=== PATIENT | female | born 2005 | race Caucasian/White ===

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

== ENCOUNTER 2024-02-18 16:02 | Outpatient (REF) | payer MEDICAID, SELFPAY | END 2024-02-18 16:03 | disposition home or self-care (01) | LOC: LBN 16:02 | PROVIDERS: Visit Provider Obstetrics & Gynecology | DX: N89.8 Other specified noninflammatory disorders of vagina (principal) | CPT/HCPCS: 87480; 87510; 87660 ==

== ENCOUNTER 2024-06-26 17:18 | Emergency (ER) | payer MEDICAID, SELFPAY ==
[2024-06-26 17:22] VITALS: BP 123/85; PULSE 103; RESP 14; TEMP 37.5; O2SAT 98
--- NOTE | 2024-06-26 17:22 | W.ED.GENAD ---
Discharge Plan Disposition Patient Disposition: Home Discharge Details Clinical Impression: Cat scratch of left wrist Primary Care Provider: None,None ED Provider: Be Yi Home Meds and New Rx's Prescriptions: New amoxicillin-pot clavulanate 875-125 mg tablet 1 tab PO BID 5 Days Qty: 10 0RF Continued insulin aspart U-100 [Novolog U-100 Insulin aspart] 100 unit/mL solution 1 sliding sc SC USEASDIRECTD Patient Comments: As directed by [facility] for Insulin Pump Discharge Instructions Instructions: Taking care of cuts, scrapes, and puncture wounds Additional Instructions: You were seen in the emergency department following your encounter with your cat. Your tetanus immunization was updated. You are receiving antibiotics in the next 5 days which you should take as directed. Please return to the emergency department as we discussed if you develop fevers streaking signs of infection or any foul-smelling drainage from your wound. Otherwise please follow-up with your primary care provider next week. Discharge Data Discharge Date/Time-TO BE ENTERED AT DEPARTURE: 06/26/24 18:15 HPI General Date/Time Provider Initiated Documentation: 06/26/24 17:22. HPI Narrative: MDM This is an overall very well-appearing normothermic but mildly tachycardic [id number]-[id number] 19-year-old female with multiple cat bites to her left wrist and hand for which she received x-rays to assess for retained teeth and antibiotics with amoxicillin clavulanic acid following irrigation with tetanus vaccination. No pain or proportion to suggest necrotizing soft tissue infection. Patient is slightly limited range of motion of left wrist likely secondary to pain. She is intact sensation motor function in her hand so not concern for ligamentous injury. No significant erythema to suggest cellulitis. No fluctuance to suggest abscess. No significant wrist erythema to suggest septic joint. 6:11 PM X-ray negative for any acute osseous abnormalities. X-ray did show soft tissue gas adjacent to the dorsal aspect of the patient's left wrist where she was bit. Tachycardia resolved without intervention in the ED. Patient and her wounds irrigated. She received her first dose of amoxicillin clavulanic acid in ED. Patient, her mom and I discussed twice daily warm water soaks. We discussed that she should return to the ED for worsening pain swelling streaking signs of infection or any foul-smelling drainage. She understood her return indications and she was discharged with empiric trial of expectant outpatient management. HPI This is a tqqvr-uwjd-yusutqby type I diabetic female arrived emergency department with her mother via private vehicle in the setting of cat bites to her right wrist and hand. Patient reports that just prior to arrival she began 2 cats from a fight. She was scratched on her left wrist and left hand. She feels that she was also bit. She denies loss of consciousness. She is having pain in her left wrist. She denies any other injuries. She was in her usual state of health earlier today. She received her immunizations during childhood. She denied dysuria frequency chest pain Exam General: Well-appearing in no acute distress speaking in complete sentences. Head: Normocephalic, atraumatic. Eye: Extraocular eye movements intact. No conjunctival injection. No scleral icterus. Ear, nose, mouth, throat: Grossly normal inspection. Normal voice, handling secretions normally. Neck: Trachea midline. Cardiovascular: Well-perfused distal extremities. Respiratory: Nonlabored respiration. Gastrointestinal: Nondistended abdomen. Musculoskeletal: On the dorsal surface of the left distal forearm there are 2 superficial bites from a cat. On the volar surface of the left proximal hand there is a single puncture wound traumatic cat scratch. Sensation motor function intact in the left hand across the radial, median, and ulnar nerve distributions. 2+ left radial pulse. Cap refill less than 2 seconds in left fingertips. Lacerations are superficial and hemostatic. Skin: Normal for age and race, grossly normal temperature and turgor. No acute rash. Neurologic: Alert and appropriate, no apparent acute deficits. Psychiatric: Mood and manner are appropriate. Grooming and personal hygiene are appropriate. Related Data Home Medications ?Medication ?Instructions ?Recorded ?Confirmed insulin aspart U-100 100 unit/mL 1 sliding sc subcut USEASDIRECTD 04/19/19 06/26/24 subcutaneous solution (Novolog U-100 Insulin aspart) amoxicillin 875 mg-potassium 1 tab PO BID 5 days #10 tabs 06/26/24 clavulanate 125 mg tablet Previous Rx's ?Medication ?Instructions ?Recorded amoxicillin 875 mg-potassium 1 tab PO BID 5 days #10 tabs 06/26/24 clavulanate 125 mg tablet Allergies Allergy/AdvReac Type Severity Reaction Status Date / Time No Known Allergies Allergy Verified 06/26/24 17:25 General JAVIER: 4 Medical Decision Making Quality:SDOH Health Related Social Needs: No Data to Display PFSH All Active Problems (Updated 06/26/24 @ 17:40 by Be Yi MD) Cat scratch of left wrist (Acute) Right wrist sprain (Acute 11/10/23) Closed fracture of left distal radius (Acute 11/10/23) Diarrhea (Acute) Type I diabetes mellitus (Chronic) with poor control Fatigue (Acute) Depression (Chronic) Menorrhagia with irregular cycle (Acute 02/12/18) Medical History Diabetic cataract Eval at [facility] 12/14 Burn of left ankle Fracture of right wrist Surgical History No pertinent past surgical history Family History Mother Hearing loss Mental disorder depression and anxiety Wears glasses Thyroid disease Brother No problems noted. Father Mental disorder depression Wears glasses Asthma Social History Smoking/Tobacco Use Status: Never Second Hand Exposure: No Smoking risk assessment performed?: Yes Alcohol Intake: never Drug use: Never Substance use type: does not use Adopted: No Foster care: No Housing: house Education Level: high school Details: [employer], 11th grade Pets and animals: No Current gender identity: female Seatbelt use: always Helmet use: Yes Fire extinguisher in home: Yes Carbon monox detector in home: Yes Firearms in home: No Do you feel safe at home: Yes Do you feel safe in your relationship?: Yes Female Reproductive History Menstrual Duration of menses: 6-7 days History History 0 Para Hx # Term Pregnancies Multiple births Hx # Pregnancies Ectopic pregnancies AB induced Hx Number of Living Children AB spontaneous
--- NOTE | 2024-06-26 17:30 | DI.RAD_ITS ---
Exam(s) XR WRIST LT COMPLETE EXAM: XR WRIST LT COMPLETE CLINICAL HISTORY: Cat bites. TECHNIQUE: 2D digital imaging was performed of the left wrist. Three images were obtained. PA, obl ique and lateral views were obtained. COMPARISON: CR XR WRIST LT LIMITED from 12/29/2023 FINDINGS: BONES: No acute fracture is present. No bony destructive lesion is seen. JOINTS: The carpal bones are normally aligned. SOFT TISSUE: There is soft tissue gas seen in the wrist posteriorly. No foreign body is identified. IMPRESSION: Soft tissue gas seen in the wrist posteriorly. No radiopaque foreign body. DATA REPOSITORY: RADIATION DOSE DELIVERED:
[2024-06-26] MEDS: Acetaminophen 500 MG TAB 1000 MG PO (17:56)
[2024-06-26] MEDS: Amoxicillin 875/Clav. 125 TAB PO (17:56)
[2024-06-26] MEDS: Diph,Pertuss(Acell),Tet Vac/Pf 0.5 ML SYR IM (17:57)
--- NOTE | 2024-06-26 18:04 | DI.VRAD_ITS ---
PROCEDURE INFORMATION: Exam: XR Left Wrist Exam date and time: 06/26/2024 5:47 PM Age: 19 years old Clinical indication: Injury or trauma; Other: Cat bites; Puncture; Wrist; Left TECHNIQUE: Imaging protocol: Radiologic exam of the left wrist. Views: 3 or more views. COMPARISON: CR XR WRIST LT LIMITED 12/29/2023 2:30 PM FINDINGS: Bones/joints: Three views of the left wrist reveal no acute fracture or dislocation. Soft tissues: There is gas in the soft tissues of the posterior wrist. No radiopaque foreign body is seen. IMPRESSION: No acute fracture or dislocation seen at the left wrist. No radiopaque foreign body. Soft tissue gas seen posteriorly in keeping with the provided history of animal bites. Dictated and Authenticated by: Jonathan Gómez MD. Ordering:MELIDA Lr MD
[2024-06-26 18:09] VITALS: PULSE 94; RESP 14
== END 2024-06-26 18:15 | disposition home or self-care (01) ==
LOC: ER 18:04
PROVIDERS: Emergency Provider Emergency Medicine
DX: W55.01XA Bitten by cat, initial encounter; E10.9 Type 1 diabetes mellitus without complications; S51.852A Open bite of left forearm, initial encounter; S61.432A Puncture wound without foreign body of left hand, initial encounter; W55.03XA Scratched by cat, initial encounter; Z23 Encounter for immunization
CPT/HCPCS: 90471; 90715; 99284; 73110; 99283

== ENCOUNTER 2024-11-28 19:26 | Emergency (ER) | payer MEDICAID, SELFPAY ==
[2024-11-28 19:29] VITALS: BP 127/85; PULSE 105; RESP 16; TEMP 36.8; O2SAT 99
--- NOTE | 2024-11-28 19:44 | ED.GENADUL_ITS ---
Discharge Plan Disposition Patient Disposition: Home Discharge Details Clinical Impression: Sinusitis Primary Care Provider: None,None ED Provider: Zaynab Spann Home Meds and New Rx's Prescriptions: New amoxicillin-pot clavulanate 875-125 mg tablet 1 tab PO BID Qty: 10 0RF No Action insulin aspart U-100 [Novolog U-100 Insulin aspart] 100 unit/mL solution 1 sliding sc SC USEASDIRECTD Patient Comments: As directed by [facility] for Insulin Pump Discharge Instructions Instructions: Sinusitis in adults Additional Instructions: Referral has been made for you to establish care with a primary care provider. Please take the Augmentin for the full course as prescribed. Please take with a probiotic such as Activia yogurt to prevent antibiotic associated diarrhea. Use Tylenol or ibuprofen as needed for discomfort. Please use saline nasal spray and steamy showers to help moisturize your sinuses. Return to emergency care if you develop new fever/chills, severe headaches, vision changes, swelling of your face or neck, or if you are very worried and need to be rechecked again immediately Referrals: Care Management [Provider Group] HPI General Date/Time Provider Initiated Documentation: 11/28/24 19:35 . HPI Narrative: Milena is a 19 year old female who presents for evaluation of sinusitis. She reports she has recently recovered from a cold, including cough and postnasal drip for the past week; denies associated sore throat, fevers, or chills. She has had unilateral epistaxis (R nare) and thick nasal discharge for 6 days, with pain radiating to her ear and jaw, mild otalgia, and a sensation of blocked ears causing temporary hearing loss. No oral pain, dental issues, vision changes, or unusual headaches. She does not use a humidifier at home. She has no primary care physician and has not used antibiotics for over 6 months. 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 Her blood glucose levels have been slightly elevated recently. Related Data Home Medications ?Medication ?Instructions ?Recorded ?Confirmed insulin aspart U-100 100 unit/mL 1 sliding sc subcut USEASDIRECTD 04/19/19 11/28/24 subcutaneous solution (Novolog U-100 Insulin aspart) amoxicillin 875 mg-potassium 1 tab PO BID #10 tabs 11/28/24 clavulanate 125 mg tablet Previous Rx's ?Medication ?Instructions ?Recorded amoxicillin 875 mg-potassium 1 tab PO BID #10 tabs 11/28/24 clavulanate 125 mg tablet Allergies Allergy/AdvReac Type Severity Reaction Status Date / Time No Known Allergies Allergy Verified 11/28/24 19:33 General Stated Complaint: GenMedical JAVIER: 4 Exam Narrative Exam Narrative: General Appearance: Normal. Vital signs: Within normal limits. HEENT: Unable to visualize TMs bilaterally due to cerumen impaction.. No epistaxis or nasal drainage noted. Tenderness palpation of right maxillary sinus. No trismus. Note dental damage or dental tenderness with palpation. Lymphatic: No cervical or submandibular lymphadenopathy. Neck: Full painless range of motion of neck. Skin: Warm and dry, no rash. Psychiatric: Normal. Course Vital Signs Vital signs: Vital Signs Temperature 36.8 C 11/28/24 19:29 Pulse 105 H 11/28/24 19:29 Respiratory Rate 16 11/28/24 19:29 Blood Pressure 127/85 11/28/24 19:29 Pulse Oximetry 99 11/28/24 19:29 Temperature 36.8 C 11/28/24 19:29 Pulse 105 H 11/28/24 19:29 Respiratory Rate 16 11/28/24 19:29 Blood Pressure 127/85 11/28/24 19:29 Pulse Oximetry 99 11/28/24 19:29 Medical Decision Making Initial Assessment: Patient presents with symptoms suggestive of sinusitis, including postnasal drip, nasal bleeding, ear pain, and facial tenderness. Patient has a history of type 1 diabetes. ED Course: - Advised daily Debrox for earwax. - Recommended use of a humidifier and spending extra time in a hot, steamy bathroom. - Suggested saline nasal spray for nasal passage relief. - Initiated antibiotics (augmentin x 6 days) and advised concurrent probiotics. - Instructed to monitor for fevers, chills, severe headaches, vision changes, increased pain or swelling on the side of her face, or neck swelling, and seek immediate medical attention if these symptoms occur. Final Assessment: Patient diagnosed with sinusitis and type 1 diabetes mellitus. Treatment includes antibiotics, probiotics, and symptomatic relief measures. Monitoring for potential complications is advised. No red flags concerning for sepsis at this time; emergent labs and imaging not indicated at this time.. Clinical Impression: - Sinusitis - Type 1 Diabetes Mellitus Disposition: - Discharge - Follow-Up: Referral to a primary care provider for ongoing management. Patient Education: Educated on the use of Debrox, humidifier, saline nasal spray, and probiotics. Discussed signs of worsening symptoms and the importance of monitoring blood sugar levels. MDM Components Evaluation: - Number of Differential Diagnoses or Management Options: Sinusitis, Type 1 Diabetes Mellitus - Amount and Complexity of Data Reviewed: Physical examination findings, patient history - Risk of Complication and Morbidity or Mortality: Elevated due to diabetes, potential for sinusitis complications Patient consented to the use of LENARD Quality:[facility] Health Related Social Needs: No Data to Display PFSH All Active Problems (Updated 11/28/24 @ 19:50 by Zaynab Courtney) Sinusitis (Acute) Right wrist sprain (Acute 11/10/23) Closed fracture of left distal radius (Acute 11/10/23) Diarrhea (Acute) Type I diabetes mellitus (Chronic) with poor control Fatigue (Acute) Depression (Chronic) Menorrhagia with irregular cycle (Acute 02/12/18) Medical History [facility] Burn of left ankle Fracture of right wrist Surgical History No pertinent past surgical history Family History Mother Hearing loss Mental disorder depression and anxiety Wears glasses Thyroid disease Brother No problems noted. Father Mental disorder depression Wears glasses Asthma Social History Smoking/Tobacco Use Status: Never Second Hand Exposure: No Smoking risk assessment performed?: Yes Alcohol Intake: never Drug use: Never Substance use type: does not use Adopted: No Foster care: No Housing: house Education Level: high school Details: [employer], 11th grade Pets and animals: No Current gender identity: female Seatbelt use: always Helmet use: Yes Fire extinguisher in home: Yes Carbon monox detector in home: Yes Firearms in home: No Do you feel safe at home: Yes Do you feel safe in your relationship?: Yes Female Reproductive History Menstrual Duration of menses: 6-7 days History History 0 Para Hx # Term Pregnancies Multiple births Hx # Pregnancies Ectopic pregnancies AB induced Hx Number of Living Children AB spontaneous
[2024-11-28] MEDS: Amox. 875/Clav. 125, 2 TABS/BTL 1 TAB PO (19:56)
[2024-11-28] MEDS: Amoxicillin 875/Clav. 125 TAB PO (19:56)
== END 2024-11-28 20:01 | disposition home or self-care (01) ==
LOC: ER 20:03
PROVIDERS: Emergency Provider Nurse Practitioner Family
DX: J32.9 Chronic sinusitis, unspecified (principal)
CPT/HCPCS: 99283